=== PATIENT | male | born 1955 | race Caucasian/White ===

== ENCOUNTER 2025-05-21 12:26 | Emergency (ER) | payer OTHER, SELFPAY ==
[2025-05-21 12:28] VITALS: BP 127/56
[2025-05-21 12:32] LABS: Glucose - Point of Care 133 mg/dl (70-99)
--- NOTE | 2025-05-21 13:22 | ED.GENMED ---
History of Present Illness
General
Chief Complaint: Blood Sugar Problem
Source: patient and ambulance crew (Report)
Exam Limitations: developmental stage
Time Seen by Provider: 05/21/25 13:00
Nursing documentation reviewed up to this point in time: agreed with
History of Present Illness
History of Present Illness:
70-year-old male special needs apparently diabetic from facility mental status change low blood sugar apparently did not eat very much today for breakfast, told me to foods that were good there, was given a sandwich blood sugars now normalized
without complaints
Past History
Past History
ED Past Medical History: HTN, Hypercholesterolemia, IDDM and Psychiatric
Social History
Tobacco: Non-smoker
Alcohol: None
Drug: None
Living: penitentiary
Employment: Not employed
Phy Exam
Physical Exam
Physical Exam:
Physical Exam
General: 70 male normal mental status stable vital signs
Neck: No tongue bite lips are moist
Heart: s1/s2 regular rate and rhythm, no murmur. equal radial pulses.
Lungs: no acute respiratory distress.
Abdomen: Nontender
Neuro: alert and oriented. no focal neurological deficits
Skin: no rash
Psychiatric: Cooperative
Extremities: no edema.
Course
Orders/Labs/Results
Orders:
Orders
05/21/25 14:33
Bedside Glucose- Treatment ONCE
Abnormal Lab Results
05/21/25 05/21/25 05/21/25
12:30 14:04 15:05
POC Glucose 133 H mg/dl 157 H mg/dl 127 H mg/dl
(70-99) (70-99) (70-99)
Vital Signs
Initial and Last Documented VS:
Initial Vital Signs
Temp Pulse Resp BP Pulse Ox
98.2 F 76 16 127/56 99
05/21/25 12:28 05/21/25 12:28 05/21/25 12:28 05/21/25 12:28 05/21/25 12:28
Last Documented Vital Signs
Temp Pulse Resp BP Pulse Ox
98.2 F 76 16 127/56 99
05/21/25 12:28 05/21/25 12:28 05/21/25 12:28 05/21/25 12:28 05/21/25 13:23
MDM/Problems Addressed
Differential Diagnosis Includes:
Hypoglycemia insulin-dependent diabetic currently did not eat much of the meal today,
MDM/Problems Addressed:
Blood sugar
Chronic conditions affecting care: DM and Psychiatric illness
Acute Exacerbation and/or Progression of Chronic Illness: DM and Psychiatric illness
*Pulse Oximetry
SaO2: 99
Oxygen Mode of Delivery: Room air
Patient hypoxic: no
*Critical Care Note
Total Time (30-74mins, 75-104mins- exclusive of procedures): Not Applicable
Update Note
Update Note:
3 PM update blood sugar noted patient eating a sandwich
ED Attending Note
-
Portions of this chart may have been created with voice recognition software.� Occasional wrong word or��sound alike� substitutions may have occurred due to the inherent limitations of voice recognition software.
Discharge Plan
Departure
Patient Disposition: Home (Routine Discharge)
Date of Disposition: 05/21/25
Time of Disposition: 15:08
Patient with high blood pressure during this ER visit?: No
Condition: Good
Covid-19: Not Applicable
Discharge Problem:
Hypoglycemia
Instructions: Low Blood Sugar, Adult (DC)
Prescriptions:
No Action
insulin glargine [Lantus U-100 Insulin] 100 UNITS/1 ML solution
30 units SC HS
quetiapine [Seroquel] 300 MG tablet
300 mg PO QPM
simvastatin 10 MG tablet
10 mg PO QPM
aspirin [Enteric Coated Aspirin] 81 MG tablet,delayed release (DR/EC)
81 mg PO DAILY
esomeprazole magnesium [Nexium] 40 MG capsule,delayed release(DR/EC)
40 mg PO DAILY
ramipril [Altace] 5 MG capsule
5 mg PO DAILY
vzfgphelnsjz-yqlfbiae-zgdgee [Centrum Silver] 1 EACH tablet
1 ea PO DAILY
insulin lispro protamin-lispro [Humalog Mix 50-50 KwikPen] 100 UNIT/1 ML insulin pen
6 unit SQ QPM
Patient Comments:
dose of humalog kwikpen not listed on home med list
insulin lispro protamin-lispro [Humalog Mix 50-50 KwikPen] 100 UNIT/1 ML insulin pen
4 unit SQ BID
Patient Comments:
pt on sliding scale coverage. dose of humalog kwikpen not listed on home med list.
fluvoxamine [Luvox CR] 100 MG capsule,extended release 24hr
100 mg PO BID
Interventions
Interventions:
*Risk Screen - Suicide Last Done: 05/21/25 12:31
*Neglect/Abuse Screening Last Done: 05/21/25 12:31
*ED COVID-19 Vaccine History Last Done: 05/21/25 14:05
*ED Influenza Vaccine History Last Done: 05/21/25 14:05
Discharge Date and Time
Print Language: MAORI
[2025-05-21 14:05] LABS: Glucose - Point of Care 157 mg/dl (70-99)
[2025-05-21 15:07] LABS: Glucose - Point of Care 127 mg/dl (70-99)
[2025-05-21 15:15] VITALS: BP 145/77
== END 2025-05-21 18:45 | disposition home or self-care (01) ==
LOC: EMR 12:26
PROVIDERS: EMERGENCY PHYSICIAN Emergency Medicine
DX: E10.649 Type 1 diabetes mellitus with hypoglycemia without coma (principal); I10 Essential (primary) hypertension; E78.00 Pure hypercholesterolemia, unspecified; Z79.4 Long term (current) use of insulin; Z79.82 Long term (current) use of aspirin
CPT/HCPCS: 99283; 82962